=== PATIENT | female | born 1980 | race Caucasian/White ===

== ENCOUNTER 2018-08-16 21:02 | Emergency (ER) | payer SELFPAY ==
[2018-08-16] MEDS ORDERED: LIDOCAINE 1% W/EPI 1:100,000 MDV 50 ML VIAL ONE (21:36)
--- NOTE | 2018-08-16 22:34 | EDPHYS ---
Physician Documentation [facility] Name: Juliana Arnett Age: 38 yrs Sex: Female : 1980 Arrival Date: 08/16/2018 Time: 21:05 Bed 7 Private MD: ED Physician Nabeel Lopez HPI: 08/16 22:26 This 38 yrs old Female presents to ER via EMS with complaints of Laceration ps1 To Arm. 22:26 patient BIBEMS for laceration to medial aspect of the left elbow. Patient was drinking ps1 and got into argument with . Punched window. Now has laceration to arm. 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 FROM.. 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 - Social history:: Smoking status: Patient uses tobacco products, smokes 1.5 packs per day, Patient uses alcohol, 12 beers a day. Patient/guardian denies using street drugs. - Ebola Screening: : Patient negative for fever greater than or equal to 101.5 degrees Fahrenheit, and additional compatible Ebola Virus Disease symptoms Patient denies exposure to infectious person Patient denies travel to an Ebola-affected area in the 21 days before illness onset. ROS: 22:26 Constitutional: Negative for fever, chills, and weight loss, Eyes: Negative for injury, ps1 pain, redness, and discharge, Cardiovascular: Negative for chest pain, palpitations, and edema, Respiratory: Negative for shortness of breath, cough, wheezing, and pleuritic chest pain, Abdomen/GI: Negative for abdominal pain, nausea, vomiting, diarrhea, and constipation, Skin: Negative for injury, rash, and discoloration, Neuro: Negative for headache, weakness, numbness, tingling, and seizure, Psych: Negative for depression, anxiety, suicide ideation, homicidal ideation, and hallucinations. 22:26 MS/extremity: Positive for 22:26 MS/extremity: Positive for laceration, of the left antecubital area. Exam: 22:26 Constitutional: This is a well developed, well nourished patient who is awake, alert, ps1 and in no acute distress. Head/Face: Normocephalic, atraumatic. Eyes: Pupils equal round and reactive to light, extra-ocular motions intact. Lids and lashes normal. Conjunctiva and sclera are non-icteric and not injected. Chest/axilla: Normal chest wall appearance and motion. Nontender with no deformity. No lesions are appreciated. Cardiovascular: Regular rate and rhythm. No gallops, murmurs, or rubs. Normal PMI, no JVD. No pulse deficits. Respiratory: Lungs have equal breath sounds bilaterally, clear to auscultation and percussion. No rales, rhonchi or wheezes noted. No increased work of breathing, no retractions or nasal flaring. Abdomen/GI: Soft, non-tender, with normal bowel sounds. No distension or tympany. No guarding or rebound. No evidence of tenderness throughout. Neuro: Awake and alert, GCS 15, oriented to person, place, time, and situation. Cranial nerves II-XII grossly intact. Sensory grossly intact. Psych: Awake, alert, with orientation to person, place and time. Behavior, mood, and affect are within normal limits. 22:26 Musculoskeletal/extremity: Extremities: grossly normal except: noted in the left antecubital area: laceration, extends through the pronator muscle. Does not appear to enter the joint space. appx 7 cm in legnth.. Vital Signs: 20:56 BP 118 / 88; Pulse 89; Resp 18; Temp 98.3(O); Pulse Ox 99% on R/A; Weight 40.82 kg (R); fc Height 5 ft. 4 in. (162.56 cm) (R); Pain 7/10; 22:00 BP 116 / 83; Pulse 83; Resp 16; Pulse Ox 100% ; rv 22:30 BP 111 / 77; Pulse 79; Resp 16; Pulse Ox 100% on R/A; Pain 0/10; aa1 20:56 Body Mass Index 15.45 (40.82 kg, 162.56 cm) fc Laceration: 22:26 Wound Repair of 7cm ( 2.8in ) subcutaneous laceration to left antecubital area. Linear ps1 shaped.. Distal neuro/vascular/tendon intact. Anesthesia: Local anesthetic administered with 5 mls of 1% lidocaine w/ Epi. Wound prep: Extensive cleansing with hibiclenz by i&c technician, Wound irrigation with saline by me, Wound explored, Copious irrigation. muscle closed with 6 4-0 Vicryl using simple sutures and sterile technique. Skin closed with 7 5-0 Prolene using simple sutures and sterile technique. Dressed with Bacitracin. Patient tolerated well. MDM: 21:32 Patient medically screened. ps1 22:35 Data reviewed: vital signs, nurses notes, radiologic studies, plain films, no FB ps1 identified, and as a result, I will discharge patient. 08/16 21:11 Order name: Elbow Left 3 View XRAY Administered Medications: 21:29 Drug: Lidocaine-Epinephrine -1%: (1:100,000) 1 amp Volume: 20 ml; Route: Infiltration; aa1 Disposition: 08/16/18 22:34 Discharged to Home. Impression: Laceration of left anticubital fossa and pronator muscle. - Condition is Stable. - Discharge Instructions: Laceration Care, Adult, [id number]. - Prescriptions for Keflex 500 mg Oral Capsule - take 1 capsule by ORAL route every 6 hours for 10 days; 40 capsule. Tylenol- Codeine #3 300-30 mg Oral Tablet - take 2 tablet by ORAL route every 6 hours As needed; 30 tablet. Bactrim DS 800- 160 mg Oral Tablet - take 1 tablet by ORAL route every 12 hours for 7 days; 14 tablet. - Medication Reconciliation Form, Thank You Letter, Antibiotic Education, Prescription Opioid Use form. - Follow up: Emergency Department; When: 7 - 10 days; Reason: Fever > 102 F, Worsening of condition, Staple/Suture removal. - Problem is new. - Symptoms are unchanged. Signatures: Dispatcher [employer] EDMS Marlen Castro RN RN aa1 Mindy Alonso RN RN fc Nabeel Lopez MD MD ps1 Corrections: (The following items were deleted from the chart) 22:46 22:34 08/16/2018 22:34 Discharged to Home. Impression: Laceration of left anticubital aa1 fossa and pronator muscle. Condition is Stable. Forms are Medication Reconciliation Form, Thank You Letter, Antibiotic Education, Prescription Opioid Use. Follow up: Emergency Department; When: 7 - 10 days; Reason: Fever > 102 F, Worsening of condition, Staple/Suture removal. Problem is new. Symptoms are unchanged. ps1
--- NOTE | 2018-08-16 22:34 | ER ---
Nurse's Notes [facility] Name: Juliana Arnett Age: 38 yrs Sex: Female : 1980 Arrival Date: 08/16/2018 Time: 21:05 Bed 7 Private MD: Diagnosis: Laceration of left anticubital fossa and pronator muscle Presentation: 08/16 20:56 Presenting complaint: EMS states: that pt put arm through glass window and now has 1 fc inch laceration to inner left elbow. Bleeding is controlled. Pt is admitted to drinking 6 beers prior to incident. Transition of care: patient was not received from another setting of care. Complicating Factors: There are no complicating factors for this patient. Onset of symptoms was August 16, 2018 at 20:30. Risk Assessment: Do you want to hurt yourself or someone else? Patient reports no desire to harm self or others. Initial Sepsis Screen: Does the patient meet any 2 criteria? No. Patient's initial sepsis screen is negative. Does the patient have a suspected source of infection? No. Patient's initial sepsis screen is negative. Care prior to arrival: Bleeding of injury controlled. 20:56 Method Of Arrival: EMS: [facility] 20:56 Acuity: HIWOT 4 fc Triage Assessment: 20:56 General: Appears uncomfortable, slender, Behavior is calm, cooperative, appropriate for age. Pain: Complains of pain in left antecubital area Pain currently is 7 out of 10 on a pain scale. Quality of pain is described as aching, throbbing, Pain began 30 min ago. Is continuous, Aggravated by increased activity, repositioning. EENT: No deficits noted. Neuro: Level of Consciousness is awake, alert, obeys commands, Oriented to person, place, time, situation, Appropriate for age. Cardiovascular: No deficits noted. Respiratory: No deficits noted. GI: No deficits noted. : No deficits noted. Derm: Skin is pink, warm \T\ dry. Musculoskeletal: Capillary refill < 3 seconds, Range of motion: limited in left elbow. Injury Description: Laceration sustained to left antecubital area is 2.6 to 7.5 cm long, not bleeding, was sustained 30-60 minutes ago. is bleeding a small amount a dressing was applied. 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 - Social history:: Smoking status: Patient uses tobacco products, smokes 1.5 packs per day, Patient uses alcohol, 12 beers a day. Patient/guardian denies using street drugs. - Ebola Screening: : Patient negative for fever greater than or equal to 101.5 degrees Fahrenheit, and additional compatible Ebola Virus Disease symptoms Patient denies exposure to infectious person Patient denies travel to an Ebola-affected area in the 21 days before illness onset. Screenin:56 Abuse screen: Denies threats or abuse. Nutritional screening: No deficits noted. fc Tuberculosis screening: No symptoms or risk factors identified. Fall Risk None identified. Assessment: 21:10 General: Appears in no apparent distress. comfortable, slender, Behavior is calm, aa1 cooperative, appropriate for age. Pain: Complains of pain in left antecubital area. Neuro: Level of Consciousness is awake, alert, obeys commands, Oriented to person, place, time, situation, Moves all extremities. Full function. Respiratory: Airway is patent Respiratory effort is even, unlabored, Respiratory pattern is regular, symmetrical. GI: No signs and/or symptoms were reported involving the gastrointestinal system. : No signs and/or symptoms were reported regarding the genitourinary system. EENT: No signs and/or symptoms were reported regarding the EENT system. Derm: Skin is intact, is healthy with good turgor, Skin is pink, warm \T\ dry. Musculoskeletal: Circulation, motion, and sensation intact. Capillary refill < 3 seconds, Range of motion: intact in all extremities. Injury Description: Laceration sustained to left antecubital area is clean, 2.6 to 7.5 cm long, not bleeding. 22:30 Reassessment: Patient appears in no apparent distress at this time. Patient and/or aa1 family updated on plan of care and expected duration. Pain level reassessed. Patient is alert, oriented x 3, equal unlabored respirations, skin warm/dry/pink. Awaiting d/c. 22:44 Reassessment: Discussed d/c \T\ f/u instructions with pt \T\ family; denies questions or aa 1 concerns at this time. Vital Signs: 20:56 BP 118 / 88; Pulse 89; Resp 18; Temp 98.3(O); Pulse Ox 99% on R/A; Weight 40.82 kg (R); fc Height 5 ft. 4 in. (162.56 cm) (R); Pain 7/10; 22:00 BP 116 / 83; Pulse 83; Resp 16; Pulse Ox 100% ; rv 22:30 BP 111 / 77; Pulse 79; Resp 16; Pulse Ox 100% on R/A; Pain 0/10; aa1 20:56 Body Mass Index 15.45 (40.82 kg, 162.56 cm) ED Course: 20:56 Arm band placed on Patient placed in an exam room, on a stretcher. fc 20:56 Patient has correct armband on for positive identification. Bed in low position. Call fc light in reach. Pulse ox on. NIBP on. 21:05 Patient arrived in ED. fc 21:07 Triage completed. fc 21:10 Genaro Castro, JANNA is Primary Nurse. aa1 21:16 Nabeel Lopez MD is Attending Physician. ps1 21:18 Elbow Left 3 View XRAY In Process Unspecified. EDMS 21:28 Verbal reassurance given. jp3 21:29 Wound care: to laceration located on left elbow was cleaned with Hibiclens, irrigated jp3 with normal saline. 22:12 Assist provider with laceration repair on left elbow that was between 2.6 to 7.5 cm rv using sutures. Set up tray. Performed by Nabeel Lopez MD Dressed with 4X4s, Patient tolerated well. GENARO SALDIVAR ASSISTED AT BEDSIDE. 22:30 Dressings: non-adherent dressing x 1 left antecubital area AUGIE wrap x 1. aa1 22:44 Patient did not have IV access during this emergency room visit. aa1 Administered Medications: 21:29 Drug: Lidocaine-Epinephrine -1%: (1:100,000) 1 amp Volume: 20 ml; Route: Infiltration; aa1 Outcome: 22:34 Discharge ordered by MD. ps1 22:44 Discharged to home ambulatory, with family. aa1 22:44 Condition: good 22:44 Discharge instructions given to patient, family, Instructed on discharge instructions, follow up and referral plans. medication usage, wound care, Demonstrated understanding of instructions, follow-up care, medications, wound care, Prescriptions given X 3. 22:46 Patient left the ED. aa1 Signatures: Dispatcher [employer] EDGenaro Aguilera RN RN aa1 Mindy Alonso RN RN Nabeel Vuong MD MD ps1 Vicente, Ronaldo, RN RN Wilfred Pena
--- NOTE | 2018-08-17 08:46 | RAD REPORT ---
EXAM DESCRIPTION: RAD - Elbow Left 3 View - 08/16/2018 9:15 pm CLINICAL HISTORY: Laceration medial left elbow, possible foreign body COMPARISON: None. FINDINGS: No fracture is identified and no elevated posterior fat pad. There is no dislocation or pe riosteal reaction noted. Soft tissue wound is present near the medial epicondyle. On the AP and obl ique projections there is linear density similar to bone near the olecranon. This is suspicious for f oreign body. Bony injury is not likely. Repeat imaging or directed imaging could be performed after f ully cleaning of the wound and removing any possible skin contaminant. IMPRESSION: Suspected foreign body near the olecranon. This is somewhat distant from the laceration site and correlation is needed with extent of laceration and possible penetrating injury.
== END 2018-08-16 22:46 | disposition home or self-care (01) ==
LOC: ER 21:02
PROC: 0JQH0ZZ Repair Left Lower Arm Subcutaneous Tissue and Fascia, Open Approach (ICD-10-PCS; principal; 2018-08-16)
DX: S56.822A Laceration of other muscles, fascia and tendons at forearm level, left arm, initial encounter (principal); W18.02XA Striking against glass with subsequent fall, initial encounter; Y93.9 Activity, unspecified; Y92.9 Unspecified place or not applicable; F17.210 Nicotine dependence, cigarettes, uncomplicated
CPT/HCPCS: 99284

== ENCOUNTER 2018-08-28 12:33 | Emergency (ER) | payer SELFPAY ==
--- NOTE | 2018-08-28 14:40 | EDPHYS ---
Physician Documentation [facility] Name: Juliana Arnett Age: 38 yrs Sex: Female : 1980 Arrival Date: 08/28/2018 Time: 12:34 Bed 11 Private MD: ED Physician Andre Marques HPI: 08/28 14:35 This 38 yrs old Female presents to ER via Ambulatory with complaints of pm1 Suture Removal. 14:35 The patient has sutures on the left elbow. Previous treatment: The patient was pm1 initially treated 12 day(s) ago, the care was rendered at [facility], Treatment type: The patient's original treatment included sutures. Sutures/paulino progress: The patient has no c/o's. The wound is well-healing with no redness, swelling, discharge, or dehiscence reported. The patient has not experienced similar symptoms in the past. 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 - Social history:: Smoking status: Patient uses tobacco products, smokes one pack cigarettes per day. - Ebola Screening: : Patient denies travel to an Ebola-affected area in the 21 days before illness onset. ROS: 14:35 Constitutional: Negative for fever, chills, and weight loss, Cardiovascular: Negative pm1 for chest pain, palpitations, and edema, Respiratory: Negative for shortness of breath, cough, wheezing, and pleuritic chest pain, Back: Negative for injury and pain. 14:35 MS/Extremity: Negative for injury and deformity. 14:35 Neuro: Negative for headache, weakness, numbness, tingling, and seizure. 14:35 Skin: Positive for laceration repair to left elbow. Exam: 14:35 Constitutional: This is a well developed, well nourished patient who is awake, alert, pm1 and in no acute distress. Head/Face: Normocephalic, atraumatic. Chest/axilla: Normal chest wall appearance and motion. Nontender with no deformity. No lesions are appreciated. Cardiovascular: Regular rate and rhythm with a normal S1 and S2. No gallops, murmurs, or rubs. Normal PMI, no JVD. No pulse deficits. Respiratory: Lungs have equal breath sounds bilaterally, clear to auscultation and percussion. No rales, rhonchi or wheezes noted. No increased work of breathing, no retractions or nasal flaring. Back: No spinal tenderness. No costovertebral tenderness. Full range of motion. 14:35 Skin: Wound recheck: Suture laceration closure: the wound is healing well, the edges are well approximated, no evidence of dehiscence, no drainage, no erythema, no swelling. 14:35 Neuro: Orientation: is normal, Motor: is normal, moves all fours. Vital Signs: 12:53 BP 113 / 81; Pulse 89; Resp 18; Temp 97.7; Pulse Ox 100% on R/A; Weight 44.45 kg (R); aj1 Height 5 ft. 4 in. (162.56 cm) (R); Pain 0/10; 12:53 Body Mass Index 16.82 (44.45 kg, 162.56 cm) aj1 MDM: 14:28 Patient medically screened. pm1 14:35 ED course: 1 of 7 sutures removed, the medial suture. Sutures are not ready to be fully pm1 removed. Patient has been keeping wound fully enclosed in bandages for the past 12 days. Recommended the patient to return in 3-4 days for reevaluation for suture removal. 14:35 Data reviewed: vital signs. Data interpreted: Pulse oximetry: on room air is 100 %. pm1 Interpretation: normal. Counseling: I had a detailed discussion with the patient and/or guardian regarding: the historical points, exam findings, and any diagnostic results supporting the discharge/admit diagnosis, the need for outpatient follow up, to return to the emergency department if symptoms worsen or persist or if there are any questions or concerns that arise at home. Administered Medications: No medications were administered Disposition: 16:15 Co-signature as Attending Physician, Andre Marques MD I agree with the assessment and kdr plan of care. Disposition: 08/28/18 14:39 Discharged to Home. Impression: Encounter for attention to dressings, sutures and drains. - Condition is Stable. - Discharge Instructions: Sutured Wound Care. - Medication Reconciliation Form, Thank You Letter, Antibiotic Education, Prescription Opioid Use form. - Follow up: Emergency Department; When: As needed; Reason: Worsening of condition. Follow up: Private Physician; When: 3-4 days; Reason: Wound Recheck, Recheck today's complaints, Continuance of care, Staple/Suture removal, Re-evaluation by your physician. - Problem is new. - Symptoms have improved. Signatures: Hue Singh RN RN aj1 Andre Marques MD MD kdr Marinas, Patrick, NP BAGMAN/WOMAN pm1 Keysha Guaman RN RN hb Corrections: (The following items were deleted from the chart) 15:01 14:39 08/28/2018 14:39 Discharged to Home. Impression: Encounter for attention to hb dressings, sutures and drains. Condition is Stable. Forms are Medication Reconciliation Form, Thank You Letter, Antibiotic Education, Prescription Opioid Use. Follow up: Emergency Department; When: As needed; Reason: Worsening of condition. Follow up: Private Physician; When: 3-4 days; Reason: Wound Recheck, Recheck today's complaints, Continuance of care, Staple/Suture removal, Re-evaluation by your physician. Problem is new. Symptoms have improved. pm1
--- NOTE | 2018-08-28 14:40 | ER ---
Nurse's Notes [facility] Name: Juliana Arnett Age: 38 yrs Sex: Female : 1980 Arrival Date: 08/28/2018 Time: 12:34 Bed 11 Private MD: Diagnosis: Encounter for attention to dressings, sutures and drains Presentation: 08/28 12:52 Presenting complaint: Patient states: "I came in on the 16 of August for stitches and aj1 now its time to get them taken out". Transition of care: patient was not received from another setting of care. Onset of symptoms was August 16, 2018. Risk Assessment: Do you want to hurt yourself or someone else? Patient reports no desire to harm self or others. Initial Sepsis Screen: Does the patient meet any 2 criteria? No. Patient's initial sepsis screen is negative. Does the patient have a suspected source of infection? No. Patient's initial sepsis screen is negative. Care prior to arrival: None. 12:52 Method Of Arrival: Ambulatory aj 12:52 Acuity: HIWOT 5 aj1 Triage Assessment: 12:53 General: Appears in no apparent distress. comfortable, Behavior is calm, cooperative, aj1 appropriate for age. Pain: Denies pain. Neuro: Level of Consciousness is awake, alert, obeys commands, Oriented to person, place, time, situation. Cardiovascular: Patient's skin is warm and dry. Respiratory: Airway is patent Respiratory effort is even, unlabored, Respiratory pattern is regular, symmetrical. 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 - Social history:: Smoking status: Patient uses tobacco products, smokes one pack cigarettes per day. - Ebola Screening: : Patient denies travel to an Ebola-affected area in the 21 days before illness onset. Vital Signs: 12:53 BP 113 / 81; Pulse 89; Resp 18; Temp 97.7; Pulse Ox 100% on R/A; Weight 44.45 kg (R); aj1 Height 5 ft. 4 in. (162.56 cm) (R); Pain 0/10; 12:53 Body Mass Index 16.82 (44.45 kg, 162.56 cm) aj1 ED Course: 12:34 Patient arrived in ED. as 12:52 Triage completed. aj1 12:53 Arm band placed on Patient placed in waiting room, Patient notified of wait time. aj1 14:21 Felix Junior NP is PHCP. pm1 14:21 Andre Marques MD is Attending Physician. pm1 Administered Medications: No medications were administered Outcome: 14:39 Discharge ordered by . pm1 15:01 Patient left the ED. hb Signatures: Hue Singh, RN RN aj1 Shae Laboy as Felix Junior NP CAR FERRY MASTER pm1 Keysha Guaman RN RN hb
== END 2018-08-28 15:01 | disposition home or self-care (01) ==
LOC: ER 12:33
DX: Z48.02 Encounter for removal of sutures (principal)
CPT/HCPCS: 99281

== ENCOUNTER 2018-09-23 13:12 | Emergency (ER) | payer SELFPAY ==
--- NOTE | 2018-09-23 14:40 | EDPHYS ---
Physician Documentation [facility] Name: Juliana Arnett Age: 38 yrs Sex: Female : 1980 Arrival Date: 09/23/2018 Time: 13:13 Bed 20 Private MD: ED Physician Otilio Rodriguez HPI: 09/23 16:12 This 38 yrs old Female presents to ER via Ambulatory with complaints of gs Suture Removal. 16:12 Previous treatment: The patient was initially treated 30 day(s) ago. Sutures/paulino gs progress: The patient has no c/o's. The wound is well-healing with no redness, swelling, discharge, or dehiscence reported. The patient has not experienced similar symptoms in the past. 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 - Social history:: Smoking status: unknown. - Ebola Screening: : No symptoms or risks identified at this time. ROS: 16:12 All other systems are negative. gs Exam: 16:12 Constitutional: The patient appears in no acute distress, alert, awake. gs 16:12 Skin: Wound recheck: Suture laceration closure: the wound is healing well, the edges are well approximated, no evidence of dehiscence, no drainage, no erythema, no swelling. Vital Signs: 13:28 BP 109 / 71; Pulse 90; Resp 18; Temp 98.1(O); Pulse Ox 100% on R/A; Weight 45.36 kg; hj Height 5 ft. 4 in. (162.56 cm); Pain 0/10; 14:55 BP 111 / 69; Pulse 85; Resp 16; Temp 98; Pulse Ox 100% ; bp 13:28 Body Mass Index 17.17 (45.36 kg, 162.56 cm) hj Procedures: 16:12 Suture/Staple removal: Removed by rn, from left arm, site appears well healed, Patient gs tolerated well. MDM: 14:14 Patient medically screened. gs 16:12 Data reviewed: vital signs, nurses notes, old medical records. gs Administered Medications: No medications were administered Disposition: 09/23/18 14:40 Discharged to Home. Impression: Encounter for removal of sutures. - Condition is Stable. - Discharge Instructions: Stitches, Davin, or Adhesive Wound Closure, Suture Removal, Care After. - Medication Reconciliation Form, Thank You Letter, Antibiotic Education, Prescription Opioid Use form. - Follow up: Private Physician; When: 2 - 3 days; Reason: Re-evaluation by your physician. Signatures: Luis Hammer RN RN Otilio Rodriguez MD MD Tahir Yadav RN RN bp Corrections: (The following items were deleted from the chart) 14:57 14:40 09/23/2018 14:40 Discharged to Home. Impression: Encounter for removal of bp sutures. Condition is Stable. Forms are Medication Reconciliation Form, Thank You Letter, Antibiotic Education, Prescription Opioid Use. Follow up: Private Physician; When: 2 - 3 days; Reason: Re-evaluation by your physician. gs
--- NOTE | 2018-09-23 14:40 | ER ---
Nurse's Notes [facility] Name: Juliana Arnett Age: 38 yrs Sex: Female : 1980 Arrival Date: 09/23/2018 Time: 13:13 Bed 20 Private MD: Diagnosis: Encounter for removal of sutures Presentation: 09/23 13:26 Presenting complaint: Patient states: sutures have been placed on my L elbow area a hj month ago and is over due for removal;. Transition of care: patient was not received from another setting of care. Onset of symptoms was September 23, 2018. Risk Assessment: Do you want to hurt yourself or someone else? Patient reports no desire to harm self or others. Initial Sepsis Screen: Does the patient meet any 2 criteria? No. Patient's initial sepsis screen is negative. Does the patient have a suspected source of infection? No. Patient's initial sepsis screen is negative. Care prior to arrival: None. 13:26 Method Of Arrival: Ambulatory 13:26 Acuity: HIWOT 4 hj Triage Assessment: 13:30 General: Appears in no apparent distress. comfortable, Behavior is calm, cooperative, bp appropriate for age. Pain: Denies pain. EENT: No deficits noted. Neuro: No deficits noted. Cardiovascular: No deficits noted. Respiratory: No deficits noted. GI: No signs and/or symptoms were reported involving the gastrointestinal system. : No signs and/or symptoms were reported regarding the genitourinary system. Derm: No deficits noted. Musculoskeletal: No deficits noted. 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 - Social history:: Smoking status: unknown. - Ebola Screening: : No symptoms or risks identified at this time. Screenin:05 Abuse screen: Denies threats or abuse. Denies injuries from another. Nutritional bp screening: No deficits noted. Tuberculosis screening: No symptoms or risk factors identified. Fall Risk None identified. Assessment: 14:05 General: SEE TRIAGE NOTE. bp 14:46 Reassessment: D/C ON HOLD PENDING PROVIDER WOUND EVAL. bp 14:55 Reassessment: PT D/C HOME AMBULATORY, DX WITH REMOVAL OF SUTURES. bp Vital Signs: 13:28 BP 109 / 71; Pulse 90; Resp 18; Temp 98.1(O); Pulse Ox 100% on R/A; Weight 45.36 kg; hj Height 5 ft. 4 in. (162.56 cm); Pain 0/10; 14:55 BP 111 / 69; Pulse 85; Resp 16; Temp 98; Pulse Ox 100% ; bp 13:28 Body Mass Index 17.17 (45.36 kg, 162.56 cm) ED Course: 13:13 Patient arrived in ED. as 13:27 Triage completed. hj 13:28 Arm band placed on right wrist. hj 14:04 Tahir Yadav, RN is Primary Nurse. bp 14:05 Patient has correct armband on for positive identification. Bed in low position. Call bp light in reach. Side rails up X2. 14:06 Otilio Rodriguez MD is Attending Physician. 14:38 Removal of Removed sutures from left antecubital area Suture site is well healed bp Patient tolerated well. 14:54 No provider procedures requiring assistance completed. Patient did not have IV access bp during this emergency room visit. Wound care: to laceration located on left antecubital area was dressed with Neosporin, Patient tolerated well. Administered Medications: No medications were administered Outcome: 14:40 Discharge ordered by . 14:56 Discharged to home ambulatory. bp 14:56 Condition: stable 14:56 Discharge instructions given to patient, Instructed on discharge instructions, follow up and referral plans. wound care, Demonstrated understanding of instructions, follow-up care, wound care. 14:57 Patient left the ED. bp Signatures: Shae Laboy Henry RN RN Otilio Rodriguez MD MD Tahir Yadav, RN RN bp Corrections: (The following items were deleted from the chart) 13:30 13:28 Pulse 90bpm; Resp 18bpm; Pulse Ox 100% RA; Temp 98.1F Oral; 45.36 kg; Height 5 hj ft. 4 in.; BMI: 17.1; Pain 0/10; hj
== END 2018-09-23 14:57 | disposition home or self-care (01) ==
LOC: ER 13:12
DX: Z48.02 Encounter for removal of sutures (principal)
CPT/HCPCS: 99283

== ENCOUNTER 2018-12-10 14:22 | Emergency (ER) | payer SELFPAY ==
--- NOTE | 2018-12-10 15:15 | EDPHYS ---
Physician Documentation [facility] Name: Juliana Arnett Age: 38 yrs Sex: Female : 1980 Arrival Date: 12/10/2018 Time: 14:26 Bed 12 Private MD: ED Physician Marcus Morse HPI: 12/10 14:30 This 38 yrs old Female presents to ER via Ambulatory with complaints of Lump kb on leg. 14:31 Pt reports lump on right leg for about a month. Came today because her family pressured kb her to get it checked out since she has a history of melanoma. Onset: The symptoms/episode began/occurred 1 month(s) ago. Severity of symptoms: At their worst the symptoms were mild in the emergency department the symptoms are unchanged. The patient has not experienced similar symptoms in the past. The patient has not recently seen a physician. 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 - Social history:: Smoking status: Patient uses tobacco products, smokes one pack cigarettes per day. - Ebola Screening: : No symptoms or risks identified at this time. ROS: 14:31 Constitutional: Negative for fever, chills, and weight loss, ENT: Negative for injury, kb pain, and discharge, Neck: Negative for injury, pain, and swelling, Cardiovascular: Negative for chest pain, palpitations, and edema, Respiratory: Negative for shortness of breath, cough, wheezing, and pleuritic chest pain, Abdomen/GI: Negative for abdominal pain, nausea, vomiting, diarrhea, and constipation, Back: Negative for injury and pain, MS/Extremity: Negative for injury and deformity, Neuro: Negative for headache, weakness, numbness, tingling, and seizure. 14:31 Skin: Positive for of the medial aspect of right calf, lump. Exam: 14:31 Constitutional: This is a well developed, well nourished patient who is awake, alert, kb and in no acute distress. Head/Face: Normocephalic, atraumatic. Neck: Trachea midline, no thyromegaly or masses palpated, and no cervical lymphadenopathy. Supple, full range of motion without nuchal rigidity, or vertebral point tenderness. No Meningismus. Chest/axilla: Normal chest wall appearance and motion. Nontender with no deformity. No lesions are appreciated. Cardiovascular: Regular rate and rhythm with a normal S1 and S2. No gallops, murmurs, or rubs. Normal PMI, no JVD. No pulse deficits. Respiratory: Lungs have equal breath sounds bilaterally, clear to auscultation and percussion. No rales, rhonchi or wheezes noted. No increased work of breathing, no retractions or nasal flaring. Abdomen/GI: Soft, non-tender, with normal bowel sounds. No distension or tympany. No guarding or rebound. No evidence of tenderness throughout. MS/ Extremity: Pulses equal, no cyanosis. Neurovascular intact. Full, normal range of motion. Neuro: Awake and alert, GCS 15, oriented to person, place, time, and situation. Cranial nerves II-XII grossly intact. Motor strength 5/5 in all extremities. Sensory grossly intact. Cerebellar exam normal. Normal gait. 14:31 Skin: walnut sized lump noted under skin to medial aspect of right calf. No tenderness or pain reported. . Vital Signs: 14:29 BP 118 / 90; Pulse 90; Resp 16; Temp 98.2; Pulse Ox 100% on R/A; Weight 43.09 kg; hb Height 5 ft. 4 in. (162.56 cm); Pain 0/10; 14:29 Body Mass Index 16.31 (43.09 kg, 162.56 cm) hb MDM: 14:29 Patient medically screened. kb 14:33 Data reviewed: vital signs, nurses notes. Data interpreted: Pulse oximetry: on room air kb is 100 %. Interpretation: normal. 15:12 Counseling: I had a detailed discussion with the patient and/or guardian regarding: the kb historical points, exam findings, and any diagnostic results supporting the discharge/admit diagnosis, radiology results, the need for outpatient follow up, a health and human performance professor, a family practitioner, to return to the emergency department if symptoms worsen or persist or if there are any questions or concerns that arise at home. 12/10 14:30 Order name: [place] Nonvasular Limited; Complete Time: 15:36 kb Administered Medications: No medications were administered Disposition: 15:35 Co-signature as Attending Physician, Marcus Morse MD I agree with the assessment and rn plan of care. Disposition: 12/10/18 15:14 Discharged to Home. Impression: Localized swelling, mass and lump, right lower limb. - Condition is Stable. - Medication Reconciliation Form, Thank You Letter, Antibiotic Education, Prescription Opioid Use form. - Follow up: Emergency Department; When: As needed; Reason: Worsening of condition. Follow up: Private Physician; When: 2 - 3 days; Reason: Recheck today's complaints, Continuance of care, Re-evaluation by your physician. Signatures: Dispatcher [employer] EDMS Halima Rivera, CIRCULATION LIBRARIAN-C CIRCULATION LIBRARIAN-Ckb Rasta Jara RN RN sg Nieto, Roman, MD MD rn Baxter, Heather, RN RN hb Corrections: (The following items were deleted from the chart) 15:13 15:12 Counseling: I had a detailed discussion with the patient and/or guardian regarding: the historical points, exam findings, and any diagnostic results supporting the discharge/admit diagnosis, radiology results, the need for outpatient follow up, a family practitioner, to return to the emergency department if symptoms worsen or persist or if there are any questions or concerns that arise at home, kb 15:27 15:14 12/10/2018 15:14 Discharged to Home. Impression: Localized swelling, mass and sg lump, right lower limb. Condition is Stable. Forms are Medication Reconciliation Form, Thank You Letter, Antibiotic Education, Prescription Opioid Use. Follow up: Emergency Department; When: As needed; Reason: Worsening of condition. Follow up: Private Physician; When: 2 - 3 days; Reason: Recheck today's complaints, Continuance of care, Re-evaluation by your physician. kb
--- NOTE | 2018-12-10 15:15 | ER ---
Nurse's Notes [facility] Name: Juliana Arnett Age: 38 yrs Sex: Female : 1980 Arrival Date: 12/10/2018 Time: 14:26 Bed 12 Private MD: Diagnosis: Localized swelling, mass and lump, right lower limb Presentation: 12/10 14:27 Presenting complaint: Lump on right leg x 1 month. Transition of care: patient was not hb received from another setting of care. Onset of symptoms was November 2018. Risk Assessment: Do you want to hurt yourself or someone else? Patient reports no desire to harm self or others. Initial Sepsis Screen: Does the patient meet any 2 criteria? No. Patient's initial sepsis screen is negative. Does the patient have a suspected source of infection? No. Patient's initial sepsis screen is negative. Care prior to arrival: None. 14:27 Method Of Arrival: Ambulatory hb 14:27 Acuity: HIWOT 4 hb Triage Assessment: 14:32 General: Appears in no apparent distress. Behavior is calm, cooperative. Pain: Denies hb pain. Neuro: Level of Consciousness is awake, alert, obeys commands, Oriented to person, place, time, situation. Cardiovascular: Capillary refill < 3 seconds Patient's skin is warm and dry. Respiratory: Airway is patent Respiratory effort is even, unlabored, Respiratory pattern is regular, symmetrical. Derm: [place] sized mass noted to right elias. 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 - Social history:: Smoking status: Patient uses tobacco products, smokes one pack cigarettes per day. - Ebola Screening: : No symptoms or risks identified at this time. Screenin:40 Abuse screen: Denies threats or abuse. Denies injuries from another. Nutritional hb screening: No deficits noted. Tuberculosis screening: No symptoms or risk factors identified. Fall Risk None identified. Assessment: 14:40 General: see triage assessment. hb Vital Signs: 14:29 BP 118 / 90; Pulse 90; Resp 16; Temp 98.2; Pulse Ox 100% on R/A; Weight 43.09 kg; hb Height 5 ft. 4 in. (162.56 cm); Pain 0/10; 14:29 Body Mass Index 16.31 (43.09 kg, 162.56 cm) hb ED Course: 14:26 Patient arrived in ED. mr 14:27 Halima Rivera FNP-C is [facility]. kb 14:27 Marcus Morse MD is Attending Physician. kb 14:28 Triage completed. hb 14:29 Arm band placed on. hb 14:40 Patient has correct armband on for positive identification. Call light in reach. hb 14:48 Keysha Guaman, RN is Primary Nurse. hb 15:08 US Extrmty Nonvasular Limited In Process Unspecified. EDMS Administered Medications: No medications were administered Outcome: 15:14 Discharge ordered by . kb 15:27 Patient left the ED. sg Signatures: Dispatcher [employer] EDMS Halima Rivera FNP-C FNP-Ckb Gay, Steven, RN RN Juliana Burnham mr Keysha Guaman, RN RN hb
--- NOTE | 2018-12-10 15:24 | RAD REPORT ---
EXAM DESCRIPTION: US - Extremity Nonvascular Limited - 12/10/2018 3:08 pm CLINICAL HISTORY: lump Soft tissue mass COMPARISON: No comparisons TECHNIQUE: Real-time sonographic evaluation of the area of interest was performed right calf region. FINDINGS: 2.0 x 2.2 x 1.3 cm soft tissue mass is seen in the area of interest right calf. Although n onspecific, the shape of the mass with mild internal linear echogenicity has the appearance of an enl arged lymph node. Followup nonemergent MR imaging of the region with gadolinium would be recommended.
[2018-12-10 15:31] VITALS: BP 118/90; TEMP 98.2; O2SAT 100
== END 2018-12-10 15:27 | disposition home or self-care (01) ==
LOC: ER 14:22
DX: R22.41 Localized swelling, mass and lump, right lower limb (principal); F17.210 Nicotine dependence, cigarettes, uncomplicated; Z85.820 Personal history of malignant melanoma of skin; Z85.028 Personal history of other malignant neoplasm of stomach
CPT/HCPCS: 76882; 99282